=== PATIENT | female | born 1980 | race Caucasian/White ===

== ENCOUNTER 2020-11-30 07:45 | Inpatient (IN) | payer OTHER ==
[~2020-11-30] VITALS: Ht 167.6 cm; Wt 72.1 kg
[2020-11-30] MEDS ORDERED: LOSARTAN-HCTZ1 EAC2 PO (13:38)
== END 2020-12-07 13:04 | disposition home or self-care (01) | DRG 419 ==
LOC: SURH 12-06 07:45
PROVIDERS: ADMIT Specialist; ATTEND Specialist
PROC: 0FJB8ZZ Inspection of Hepatobiliary Duct, Via Natural or Artificial Opening Endoscopic (ICD-10-PCS; 2020-12-06)
PROC: 0FJD8ZZ Inspection of Pancreatic Duct, Via Natural or Artificial Opening Endoscopic (ICD-10-PCS; 2020-12-07)
PROC: BF5C200 Other Imaging of Hepatobiliary System, All using Fluorescing Agent, Indocyanine Green Dye, Intraoperative (ICD-10-PCS; 2020-12-07)
PROC: 0FT44ZZ Resection of Gallbladder, Percutaneous Endoscopic Approach (ICD-10-PCS; principal; 2020-12-07 09:00)
DX: K80.10 Calculus of gallbladder with chronic cholecystitis without obstruction (principal); K80.50 Calculus of bile duct without cholangitis or cholecystitis without obstruction; I10 Essential (primary) hypertension

== ENCOUNTER 2023-10-26 15:58 | Emergency (ER) | payer OTHER ==
[~2023-10-26] VITALS: Ht 167.6 cm; Wt 72.1 kg
[~2023-10-26 15:58] MED LIST: LOSARTAN-HCTZ1 EAC2 PO
[2023-10-26] MEDS ORDERED: NORVASC5 MG PO (17:04)
[2023-10-26] MEDS ORDERED: FAMOTIDINE/PF 20 MG/2 ML VIAL IV ONE (18:15)
[2023-10-26] MEDS ORDERED: 0.9 % SODIUM CHLORIDE 1,000 ML IV ONE (18:15)
[2023-10-26] MEDS ORDERED: KETOROLAC TROMETHAMINE 30 MG VIAL IV ONE (18:30)
[2023-10-26] MEDS ORDERED: ONDANSETRON HCL 2 MG/ML VIAL IV ONE (18:30)
[2023-10-26 19:29] LABS: HEMATOCRIT 39.8 % (36.0-45.00); HEMOGLOBIN 13.6 g/dL (12.0-15.00); MEAN CELL VOLUME 89.4 fL (80.00-100.00); MEAN CORPUSCULAR HEMOGLOBIN 30.7 pg (27.00-32.0); MEAN CORPUSCULAR HGB CONC 34.3 g/dl (32.0-36.0); PLATELET COUNT 372 K/uL (150-450); RED BLOOD COUNT 4.45 M/uL (4.00-6.00); RED CELL DISTRIBUTION WIDTH 13.1 % (11.5-14.5)
[2023-10-26 19:48] LABS: ALBUMIN 4.8 gm/dL (3.4-5.0); BILIRUBIN TOTAL 1.03 mg/dL (0.3-1.2); CALCIUM 9.6 mg/dL (8.5-10.1); CREATININE SERUM 0.69 mg/dL (0.55-1.02); GFR 93.76; POTASSIUM 3.35 mEq/L (3.5-5.1); TOTAL PROTEIN 7.8 gm/dL (6.4-8.2)
[2023-10-26 19:54] LABS: PH,URINE 5.5 (5.0-8.0); URINE APPEARANCE Clear; URINE BILIRRUBIN Negative (NEGATIVE); URINE BLOOD Moderate; URINE COLOR Yellow; URINE GLUCOSE Negative (NEGATIVE); URINE LEUKOCYTE Negative; URINE NITRATE Negative; URINE PROTEIN Trace (NEGATIVE); URINE UROBILINOGEN 0.2 E.U./dl
[2023-10-26 19:58] LABS: URINE BACTERIA 17.6 uL (0.0-1933); URINE EPITHELIAL CELLS 2.6 uL (0.0-38.8); URINE RBC 13.6 uL (0.0-20.8); URINE WBC 3.5 uL (0.0-23.2)
[2023-10-26] MEDS ORDERED: MEPERIDINE HCL/PF 25 MG/ML VIAL IM ONE (23:15)
[2023-10-26] MEDS ORDERED: PROMETHAZINE HCL 25 MG/ML AMPUL IM ONE (23:30)
[2023-10-27] MEDS ORDERED: DICYCLOMINE HCL 20 MG TABLET PO STA (01:23)
== END 2023-10-27 01:48 | disposition home or self-care (01) ==
LOC: ER 15:58
PROVIDERS: Emergency Medicine
DX: K66.0 Peritoneal adhesions (postprocedural) (postinfection) (principal); D25.9 Leiomyoma of uterus, unspecified; Z97.5 Presence of (intrauterine) contraceptive device; N83.202 Unspecified ovarian cyst, left side; I10 Essential (primary) hypertension

== ENCOUNTER 2024-04-29 13:47 | Emergency (ER) | payer OTHER ==
[~2024-04-29] VITALS: Ht 167.6 cm; Wt 74.8 kg
[~2024-04-29 13:47] MED LIST changes: +NORVASC5 MG PO
[2024-04-29] MEDS ORDERED: AFRIN15 ML NASAL (15:51)
== END 2024-04-29 16:18 | disposition home or self-care (01) ==
LOC: ER 13:48
DX: R04.0 Epistaxis (principal); I10 Essential (primary) hypertension; Z88.8 Allergy status to other drugs, medicaments and biological substances